=== PATIENT | female | born 1985 | race Caucasian/White ===

== ENCOUNTER 2017-07-29 06:54 | Day surgery (SDC) | payer MEDICAID, SELFPAY ==
[2017-07-29 07:18] VITALS: BP 152/88; PULSE 85; RESP 20; TEMP 36; O2SAT 100; BMI 66.5
[2017-07-29 07:34] LABS: Internal QC Validated? YES +Cl - CLEAR BKGD
[2017-07-29 07:35] LABS: Pregnancy, Urine Negative Negative
[2017-07-29 07:36] LABS: Bedside Glucose 156 mg/dL (70-110)
[2017-07-29 09:05] VITALS: BP 138/123; BP 152/88; PULSE 84; RESP 20; TEMP 36.6; O2SAT 95
--- NOTE | 2017-07-29 09:08 | PCM.OP.BLANK ---
Operative Report Date of Procedure: 07/29/17 Preoperative diagnosis: Right Carpal tunnel syndrome Postoperative diagnosis: Same Title of operation: Open Right carpal tunnel release Surgeon: Dr. Wai Kruse Anesthesia: Local w MAC Indications for surgery: Patient seen and evaluated in the office. Diagnosed with carpal tunnel syndrome. They have failed adequate nonoperative treatment. Due to persistent symptoms they wish to proceed with carpal tunnel release surgery appropriate informed consent was obtained and signed. Details of procedure: Patient was taken to the OR and transferred to the OR table. Appropriate timeouts were performed. Well-padded tourniquet was applied to the operative upper extremity proximally. MAC administered. Area was prepped with alcohol. Local anesthetic was administered using 9 cc of 2% lidocaine plain. Operative extremity was prepped padded and draped in usual orthopedic sterile fashion for the procedure. Limb was exsanguinated. Tourniquet applied to 250 mmHg. Three centimeter incision was made over the palm. Carefully taken through skin, subcutaneous tissue, down onto the transverse carpal ligament. Transverse carpal ligament was opened at the midportion with a knife. Elevator was carefully placed underneath the transverse carpal ligament in a distal direction. I dissected down onto that with a knife. Elevator was then placed in a proximal direction, again directly underneath the transverse carpal ligament. I dissected down on that with a knife. Scissors were used at the proximal extent placed under direct visualization. This fully released the proximal extent of the transverse carpal ligament. At this point my small finger was placed proximally and distally to assure complete release of the transverse carpal ligament over the median nerve. FPL tendon was noted. No significant abnormalities were noted at the region of the carpal canal. Tourniquet was let down. Bleeding controlled with the Bovie. Wound thoroughly irrigated. No undue bleeding noted. Skin edges were reapproximated with a 4-0 nylon. Sterile bandage was applied. Patient was awoken from the anesthetic. Transferred to the room bed. To recovery room in satisfactory condition. Patient will be discharged home. Ice and elevation recommended. Pain medication as needed. Follow-up in the office next week as scheduled. This note was generated with [employer] dictation software. It may contain incorrect words, spelling, and punctuation that were not noted in checking the note before signing.
[2017-07-29 09:15] VITALS: BP 136/89; BP 152/88; PULSE 79; RESP 18; O2SAT 92
[2017-07-29 09:30] VITALS: BP 148/90; BP 152/88; PULSE 82; RESP 18; O2SAT 92
[2017-07-29 09:46] VITALS: BP 152/88; BP 155/85; PULSE 94; RESP 16; TEMP 36.2; O2SAT 92
[2017-07-29 09:56] LABS: Bedside Glucose 135 mg/dL (70-110)
[2017-07-29 10:25] VITALS: BP 152/88
== END 2017-07-29 10:33 | disposition home or self-care (01) ==
LOC: SDC 06:54 → AC 06:56
PROVIDERS: Anesthesiology; Visit Provider Orthopaedic Surgery
PROC: (CPT 64721; principal; 2017-07-29 08:15)
DX: G56.01 Carpal tunnel syndrome, right upper limb (principal); I10 Essential (primary) hypertension; E11.9 Type 2 diabetes mellitus without complications; F32.9 Major depressive disorder, single episode, unspecified; F17.210 Nicotine dependence, cigarettes, uncomplicated; Z79.84 Long term (current) use of oral hypoglycemic drugs; Z79.899 Other long term (current) drug therapy
CPT/HCPCS: 64721; 81025; 82962; J7120; J2405

== ENCOUNTER 2017-09-02 15:30 | Outpatient (RCR) | payer MEDICAID, SELFPAY ==
--- NOTE | 2017-08-08 17:53 | HP.OTEVAL ---
Patient's Visit Information ROSALINA HADDAD is a 31 year old F, referred to Occupational Therapy by JA Freeman.BPOMPE, with a diagnosis of right CTS. Date of Evaluation: 08/08/17 Occupational Therapist: Dennise Meraz, OTR/Shane, CHT - Subjective Subjective: Pts states she had CTS on and off for a couple of years. 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 pt states her RIght CT 07-29-17. pt states she is feeling better most sensation has returned - pt is right hand dom. 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 with BADLS and IADLS By D/C Goal:: PT will demo a increase in right wrist ROM by 20 degrees to incrases her ind. with bathing, dressing and meal prep. D/C Goal:: PT will report pain is no greater than 2/10 with BADLS and IADLS by d/c Goal:: pt will demo the ability to manipulate fasteners at ind. level by d/c Goal:: pt will demo understanding of scar mtg and desensitization by end of 3rd session. - Rehabilitation General Assessment: S/P right CTR - Anticipated Interventions Anticipated Interventions: A/AAROM/PROM, Strengthening, Scar Care, Triggerpoint Release, Desensitization, Wound Care, Modalities, Fine Motor Coord/Junior - Visit Plan Frequency: 2-3x /Week Duration: 4 Weeks General Plan: OT 2-3x week luis 4 weeks will ed. pt on tendon glide ex and scar mtg. and progress pt with ROM and strength to return to work and BADls at IND. level TEXT: Thank you for the opportunity to evaluate your patient. For Medicare and Medicare HMO plans, please review the plan of care and approve it. It will need to be FAXED BACK to us at [phone] for Medicare purposes. Please let me know if there are questions or concerns regarding this plan of care. Physician Signature: Date:
--- NOTE | 2017-10-26 13:25 | HP.OT.NRP ---
HP - Discharge Summary - Patient Information ROSALINA HADDAD was seen in my office for initial evaluation on 08/08/17. The following Plan of Care was established for this patient: Initial Frequency: 2-3x /Week Initial Duration: 4 Weeks Plan: cont POC - Anticipated Interventions Anticipated Interventions: A/AAROM/PROM, Strengthening, Scar Care, Triggerpoint Release, Desensitization, Wound Care, Modalities, Fine Motor Coord/Junior This patient was last seen in our office 09/02/17. Pertinent comments regarding their Occupational therapy will appear below: Pt was seen for 9 visits following CTR- pt demo good progress and her last visit was 09-02-17. PT was to return for one more visit to ensure HEP- pt did not due so or has not scheduled any further apts and is D/C at this time. At this point I will be discontinuing this patient from occupational therapy. I would be happy to see this patient again in the future if found appropriate by the physician. Thank you! Dennise Meraz, OTR/L, CHT
== END 2017-09-02 19:00 | disposition home or self-care (01) ==
LOC: OT 15:30
PROVIDERS: Visit Provider Physician Assistant
DX: G56.01 Carpal tunnel syndrome, right upper limb (principal)
CPT/HCPCS: 97035; 97110; 97140; 97166

== ENCOUNTER 2017-12-22 20:48 | Emergency (ER) | payer MEDICAID, SELFPAY ==
[2017-12-22 20:50] VITALS: BP 175/96; PULSE 116; RESP 20; TEMP 36.7; O2SAT 96; BMI 65.2
--- NOTE | 2017-12-22 21:51 | ED.VISSUMM ---
- ER Visit Summary Date of Service: 12/22/17 Chief Complaint: Atraumatic left lateral ankle pain History of Present Illness: The patient is a 32 F history of noncemented diabetes and hypertension. Patient states that she recently started work again. She has been working at the [employer] the last 3 days. States that they walk and stand a lot. She is developed pain and mild swelling her left lateral ankle. Denies any trauma. No prior history no prior ankle surgery. Denies knee, hip or calf pain. Denies any fever or redness. Physical Examination: Well-appearing young female. Vital signs are stable and afebrile. She does not look septic or toxic. Currently she is in no acute distress. H EENT exam unremarkable. Neck nontender. Lungs clear to auscultation bilaterally. Heart regular rhythm no murmur. Abdomen soft nontender normal bowel sounds no peritoneal signs. She is mildly overweight. She is moving all 4 extremities. They are neurovascularly intact. She has a strong DP pulse left ankle. Dorsi plantar flexion intact. Achilles intact. Left foot neurovascular intact nontender. She has minimal volume tenderness to left lateral ankle. There is no redness or warmth. Calf is nontender she has normal range of motion to the left lower extremity and normal touch sensation. Test Results: None Emergency Department Course and Treatment: Given the patient's had no trauma and her history would be consistent with a lot of walking standing I think is just inflammation of the ankle. She deferred any x-rays at this time and needs no other testing. She will be given p.o. Motrin here. Treatment Plan: Ice and elevate. Motrin for pain and inflammation. Off work tomorrow. Disposition: Discharge Impression: Left lower ankle pain and swelling secondary to overuse This note was generated with [employer] dictation software. It may contain incorrect words, spelling, and punctuation that were not noted in review of the chart prior to signing ED Disposition - Plan for ED Patient: Chief Complaint: Lower Extremity Injury Referrals: Jm Lewis,Out of [Primary Care Provider] -
--- NOTE | 2017-12-22 21:54 | ED.DCSUM_ITS ---
- ER Visit Summary Date of Service: 12/22/17 Chief Complaint: Atraumatic left lateral ankle pain History of Present Illness: The patient is a 32 F history of noncemented diabetes and hypertension. Patient states that she recently started work again. She has been working at the [employer] the last 3 days. States that they walk and stand a lot. She is developed pain and mild swelling her left lateral ankle. Denies any trauma. No prior history no prior ankle surgery. Denies knee, hip or calf pain. Denies any fever or redness. Physical Examination: Well-appearing young female. Vital signs are stable and afebrile. She does not look septic or toxic. Currently she is in no acute distress. H EENT exam unremarkable. Neck nontender. Lungs clear to auscultation bilaterally. Heart regular rhythm no murmur. Abdomen soft nontender normal bowel sounds no peritoneal signs. She is mildly overweight. She is moving all 4 extremities. They are neurovascularly intact. She has a strong DP pulse left ankle. Dorsi plantar flexion intact. Achilles intact. Left foot neurovascular intact nontender. She has minimal volume tenderness to left lateral ankle. There is no redness or warmth. Calf is nontender she has normal range of motion to the left lower extremity and normal touch sensation. Test Results: None Emergency Department Course and Treatment: Given the patient's had no trauma and her history would be consistent with a lot of walking standing I think is just inflammation of the ankle. She deferred any x-rays at this time and needs no other testing. She will be given p.o. Motrin here. Treatment Plan: Ice and elevate. Motrin for pain and inflammation. Off work tomorrow. Disposition: Discharge Impression: Left lower ankle pain and swelling secondary to overuse This note was generated with [employer] dictation software. It may contain incorrect words, spelling, and punctuation that were not noted in review of the chart prior to signing ED Disposition - Plan for ED Patient: Chief Complaint: Lower Extremity Injury Referrals: Jm Lewis,Out of [Primary Care Provider] -
--- NOTE | 2017-12-22 21:55 | DCINST.ED_ITS ---
ED Disposition - Plan for ED Patient: Disposition: Home or Assisted Living Chief Complaint: Lower Extremity Injury Referrals: [facility] [address] Doctor,Out of [Primary Care Provider] - 1 Week if not improving Additional Instructions: Off work tomorrow. Motrin for pain and inflammation. Ice and elevate the left ankle. I suspect this is just from a lot of walking and standing that you have not been used to. This should progressively get better with time. If not follow- up your primary care physician and you may need x-rays at that time.
[2017-12-22 22:05] VITALS: PULSE 78; RESP 20
[2017-12-22] MEDS: Ibuprofen 600 MG Tablet PO (22:05)
== END 2017-12-22 22:06 | disposition home or self-care (01) ==
LOC: ED 21:59
PROVIDERS: Emergency Provider Emergency Medicine; Family Provider Nurse Practitioner Family; PCP Nurse Practitioner Family
DX: M70.872 Other soft tissue disorders related to use, overuse and pressure, left ankle and foot (principal); Y93.89 Activity, other specified; E11.9 Type 2 diabetes mellitus without complications; I10 Essential (primary) hypertension; Z79.84 Long term (current) use of oral hypoglycemic drugs; Z79.899 Other long term (current) drug therapy; Z72.0 Tobacco use
CPT/HCPCS: 99283

== ENCOUNTER → 2018-03-09 12:56 | Outpatient (CLI) | payer MEDICAID, SELFPAY ==
--- NOTE | 2018-03-09 13:12 | BI_ITS ---
MAMMOGRAPHY - BILATERAL SCREENING 3-D GLENN SYNTHESIS REASON FOR EXAM: Female, 32 years old. Bilateral Screening 3-D tomosynthesis. PERTINENT HISTORY: Maternal grandmother age approximate 50. TECHNIQUE: 2-D mammograms and 3-D Glenn synthesis of the breast (s) were performed. CAD was performed. COMPARISON: 02/16/2016. FINDINGS: The breast composition is composed of scattered fibroglandular density. The breast composition is extremely dense, which lowers the sensitivity of mammography. Scattered benign appearing calcifications are seen. No dense spiculated masses or suspicious microcalcification cluster are identified. No architectural distortion or asymmetric density is identified. There is no skin thickening or nipple retraction identified. There has been no significant change identified since the prior study. BI/SCREENING MAMM (CAD), BILAT IMPRESSION: No mammographic sign of malignancy. Routine yearly mammograms recommended. ASSESSMENT CATEGORY: BIRADS Category 2: Benign. A letter regarding these results will be sent to the patient by the facility within 30 days. FOLLOW UP RECOMMENDATION: Yearly follow up mammogram recommended. (A) Negative mammographic results should not deter biopsy as a palpable lesion if present should be followed based on clinical grounds and biopsy performed if clinically persistent for 3 months or increasing size. Approximately 10% of breast cancers are not detected by mammography. A normal mammogram should not delay biopsy of a clinically suspicious abnormality. Electronically Signed: Reji Hernandez, at 16:36 EDT Tel , Service support ,
== END ==
PROVIDERS: Family Provider Nurse Practitioner Family; PCP Nurse Practitioner Family
DX: Z12.31 Encounter for screening mammogram for malignant neoplasm of breast (principal)
CPT/HCPCS: 77063; 77067

== ENCOUNTER 2018-04-19 11:17 | Emergency (ER) | payer MEDICAID, SELFPAY ==
[2018-04-19 11:19] VITALS: BP 162/104; PULSE 113; RESP 18; TEMP 36.5; O2SAT 93; BMI 68.3
--- NOTE | 2018-04-19 12:09 | EKG12_ITS ---
Test Reason : CP Blood Pressure : / mmHG Vent. Rate : 091 BPM Atrial Rate : 091 BPM P-R Int : 170 ms QRS Dur : 080 ms QT Int : 352 ms P-R-T Axes : 021 030 011 degrees QTc Int : 432 ms Normal sinus rhythm Normal ECG Confirmed by RADHA NICOLE, YARY ([id number]), science editor ANTONIO HADDAD ([id number]) on 04/21/2018 3:10:27 PM Referred By: ALMITA Confirmed By:YARY GARCIA MD
--- NOTE | 2018-04-19 12:10 | ED.VISSUMM ---
- ER Visit Summary Date of Service: 04/19/18 Chief Complaint: Chest pain History of Present Illness: The patient is a 32 F who presents for chest pain. Patient has been having intermittent substernal chest pain for 1 month. Episodes last 5-10 minutes, described as dull and nagging, and occur several times daily. It is worse with stress. Patient is noticing radiation into the left arm today. She is currently rating it 6 out of 10. She has mild associated nausea. She has a chronic cough due to smoking. No fever, shortness of breath, abdominal pain, vomiting, back pain or other complaints. She has history of hypertension, diabetes, hypercholesterolemia, mother of heart disease with onset at age younger than 55, patient is a smoker. Physical Examination: Vital signs: afebrile, hemodynamically stable, no hypoxia on room air General: well nourished, well developed, in no distress, BMI of 68 Skin: warm, dry, no rash, no pallor HEENT: normocephalic and atraumatic; PERRL, EOMI, moist mucous membranes Cardiovascular: regular rate and rhythm without murmurs, no peripheral edema, 2+ pulses all distal extremities Respiratory: No increased work of breathing, lungs are clear to auscultation bilaterally, no rales, rhonchi or wheezing Abdominal: Abdomen is soft, nontender with normoactive bowel sounds, no guarding or rebound, no masses MSK: Moves all extremities, no deformities, normal strength Neuro: Awake and alert, oriented ?4. No facial droop, sensation and motor function intact and symmetric Test Results: Abnormal Lab Results 04/19/18 04/19/18 04/19/18 12:36 12:36 12:36 WBC 10.6 RBC 4.58 Hgb 12.4 Hct 37.9 MCV 82.8 MCH 27.1 MCHC 32.7 RDW 13.8 RDW Differential 41.0 Plt Count 324 MPV 10.1 Immature Gran % (Auto) 0.300 Neut % (Auto) 64.5 Lymph % (Auto) 28.5 [facility] % (Auto) 5.3 Eos % (Auto) 1.1 Baso % (Auto) 0.3 Absolute Neuts (auto) 6.8 Absolute Lymphs (auto) 3.02 Total Counted Not Reportable PT 12.9 INR 1.0 APTT 32.6 Sodium 136 Potassium 3.8 Chloride 100 Carbon Dioxide 29.0 Anion Gap 7 BUN 16 Creatinine 0.80 Estim Creat Clear Calc 76.89 Est GFR (MDRD) Af Amer 107 Est GFR (MDRD) Non-Af 88 BUN/Creatinine Ratio 19.9 Glucose 114 H Calcium 8.8 Troponin I < 0.015 TSH 2.61 04/19/18 15:32 WBC RBC Hgb Hct MCV MCH MCHC RDW RDW Differential Plt Count MPV Immature Gran % (Auto) Neut % (Auto) Lymph % (Auto) [facility] % (Auto) Eos % (Auto) Baso % (Auto) Absolute Neuts (auto) Absolute Lymphs (auto) Total Counted PT INR APTT Sodium Potassium Chloride Carbon Dioxide Anion Gap BUN Creatinine Estim Creat Clear Calc Est GFR (MDRD) Af Amer Est GFR (MDRD) Non-Af BUN/Creatinine Ratio Glucose Calcium Troponin I < 0.015 TSH Clinical Impression(s) from Imaging Studies Chest X-Ray 04/19/18 12:55 IMPRESSION: Normal x-ray examination of the chest. Electronically Signed: Reggie Coulter MD at 13:10 EST Tel [phone], Service support , Medications Given Discontinued Medications Aspirin (Aspirin, Baby) 324 mg PO X1 STA Stop: 04/19/18 12:09 Last Admin: 04/19/18 12:31 Dose: 324 mg Nitroglycerin (Nitrostat) 0.4 mg SUBLINGUAL Q5M CRISSY Stop: 04/19/18 12:26 Last Admin: 04/19/18 12:42 Dose: Not Given Admin: 04/19/18 12:36 Dose: 0.4 mg Admin: 04/19/18 12:31 Dose: 0.4 mg Emergency Department Course and Treatment: Patient was given aspirin and nitro for her chest pain. EKG showed a sinus rhythm rate of 91 with no ischemic changes. Initial troponin negative. Labs otherwise unremarkable. TSH within normal limits. Chest x-ray showed no acute process. Patient is young but does have risk factors for coronary artery disease. Her BERNA is I and heart score is 3. Because she is low risk, repeat troponin and EKG were performed at 3 hours. Repeat EKG showed no changes and repeat troponin was negative. Upon reevaluation, patient had no further episodes of chest pain. Patient was tachycardic upon initial entrance into ED, likely secondary to walking into the ED, but had resolution of tachycardia shortly after rest. With no tachycardia, no hypoxia, no dyspnea or tachypnea, and no risk factors for PE, patient is PERC negative, low risk Wells, and thus no d-dimer performed. She has an appointment with her primary care doctor scheduled already and will keep this appointment. We discussed her following up with the primary care doctor for outpatient stress test. Patient stated she would do this and was discharged home with symptoms resolved. Treatment Plan: [] Disposition: [] Impression: Episodic chest pain This note was generated with [facility] dictation software. It may contain incorrect words, spelling, and punctuation that were not noted in review of the chart prior to signing ED Disposition - Plan for ED Patient: Disposition: Home or Assisted Living Chief Complaint: Chest Pain Instructions: ED Chest Pain Atypical Unkn Cause Referrals: Blossom Rashid NP-C [Primary Care Provider] - 3-5 Days if not improving Additional Instructions: Please follow-up with your primary care provider for another evaluation and to discuss scheduling a stress test. If you have any worsening of your condition or any new concerning symptoms, please return immediately to the emergency department for another evaluation.
[2018-04-19 12:31] VITALS: BP 144/91; PULSE 96
[2018-04-19] MEDS: Aspirin 81 MG TAB.CHEW 324 MG PO (12:31)
[2018-04-19 12:36] VITALS: BP 124/74; PULSE 88
[2018-04-19 12:49] LABS: Absolute Lymphocyte Count 3.02 X10^3/ul (0.83-4.51); Absolute Neutrophil Count 6.8 X10^3/uL (2.0-7.7); Basophil# 0.03 X10^3/uL; Basophil% 0.3 % (0-1); Eosinophil# 0.12 X10^3/uL; Eosinophils% 1.1 % (0-5); Hematocrit 37.9 % (37-47); Hemoglobin 12.4 g/dl (12.0-15.0); Lymphocyte # 3.02 X10^3/ul (4.0); Lymphocyte % 28.5 % (19-41); Mean Corp Hgb Conc 32.7 g/gl (32-36); Mean Corpuscular Hgb 27.1 pg (27.0-32.0); Mean Corpuscular Volume 82.8 fL (81-99); Mean Platelet Vol. 10.1 fl (6.2-12.0); Monocyte# 0.56 X10^3/uL; Monocyte% 5.3 % (0-10); Neutrophil # 6.83 X10^3/uL (2.7-7.7); Neutrophil % 64.5 % (47-70); Platelet Count 324 K/mm3 (150-450); RBC Distribution Width CV 13.8 % (11.6-14.6); Red Blood Count 4.58 M/mm3 (4.2-5.4); White Blood Count 10.6 K/mm3 (4.4-11.0)
[2018-04-19 12:51] LABS: POSITIVE COUNT NO; POSITIVE DIFFERENTIAL NO; POSITIVE MORPHOLOGY NO
--- NOTE | 2018-04-19 12:55 | RAD_ITS ---
STUDY: X-RAY CHEST REASON FOR EXAM: Female, 32 years old. Chest pain. TECHNIQUE: AP and lateral views of the chest. COMPARISON: None. FINDINGS: EKG electrodes are seen. The lungs are clear and expanded. There is no demonstrated pleural abnormality. Normal size heart. Normal mediastinum and marco. Normal visualized pulmonary arteries. Normal visualized aortic arch and descending thoracic aorta. Normal visualized thoracic spine. Normal visualized ribs, clavicles, and shoulders. There is no demonstrated abnormality of the visualized soft tissue structures of the upper abdomen. RAD/Chest PA and Lateral IMPRESSION: Normal x-ray examination of the chest. Electronically Signed: Reggie Coulter MD at 13:10 EST Tel [phone], Service support ,
[2018-04-19 12:58] LABS: Prothrombin Time (Protime)PT. 12.9 SECONDS (11.7-14.9)
[2018-04-19 12:59] LABS: Partial Thromboplast Time 32.6 Seconds (24.1-36.2)
[2018-04-19 13:05] LABS: Anion Gap 7 (5-15); BUN 16 mg/dL (7-18); BUN/Creat Ratio 19.9 RATIO (10-20); Calcium,Total 8.8 mg/dL (8.5-10.1); Chloride 100 mmol/L (98-107); EST Glomerular Filtration Rate 88 mL/min (>60); Est Glom Filt Rate - Afr Amer 107 mL/min (>60); Estimated Creatinine Clearance 76.89 ml/min; Glucose 114 mg/dL (74-106); Potassium 3.8 mmol/L (3.5-5.1); Sodium Level 136 mmol/L (136-145); Thyroid Stim Hormone (TSH) 2.61 uIU/mL (0.358-3.74)
[2018-04-19 13:40] VITALS: BP 128/79; PULSE 89; RESP 24; O2SAT 96
--- NOTE | 2018-04-19 14:50 | EKG12_ITS ---
Test Reason : REPEAT Blood Pressure : / mmHG Vent. Rate : 096 BPM Atrial Rate : 096 BPM P-R Int : 168 ms QRS Dur : 086 ms QT Int : 366 ms P-R-T Axes : 021 027 011 degrees QTc Int : 462 ms Normal sinus rhythm Normal ECG Confirmed by RADHA NICOLE, YARY ([id number]), editorial cartoonist ANTONIO HADDAD ([id number]) on 04/21/2018 3:10:41 PM Referred By: ALMITA Confirmed By:YARY GARCIA MD
[2018-04-19 15:15] VITALS: BP 124/61; PULSE 86; O2SAT 98
--- NOTE | 2018-04-19 16:38 | ED.DEP ---
ED Disposition - Plan for ED Patient: Disposition: Home or Assisted Living Chief Complaint: Chest Pain Instructions: ED Chest Pain Atypical Unkn Cause Referrals: Blossom Rashid NP-C [Primary Care Provider] - 3-5 Days if not improving Additional Instructions: Please follow-up with your primary care provider for another evaluation and to discuss scheduling a stress test. If you have any worsening of your condition or any new concerning symptoms, please return immediately to the emergency department for another evaluation.
[2018-04-19 16:51] VITALS: BP 124/72; PULSE 20; RESP 20
== END 2018-04-19 16:54 | disposition home or self-care (01) ==
PROVIDERS: Emergency Provider Emergency Medicine; Family Provider Nurse Practitioner Family; PCP Nurse Practitioner Family
DX: R07.89 Other chest pain (principal); I10 Essential (primary) hypertension; E11.9 Type 2 diabetes mellitus without complications; E78.00 Pure hypercholesterolemia, unspecified; F17.200 Nicotine dependence, unspecified, uncomplicated; E66.9 Obesity, unspecified; Z68.44 Body mass index [BMI] 60.0-69.9, adult; Z79.84 Long term (current) use of oral hypoglycemic drugs; Z79.899 Other long term (current) drug therapy; Z82.49 Family history of ischemic heart disease and other diseases of the circulatory system
CPT/HCPCS: 71046; 80048; 84443; 84484; 85025; 85610; 85730; 93005; 99285; A4216

== ENCOUNTER 2018-09-25 12:38 | Emergency (ER) | payer MEDICAID, SELFPAY ==
[2018-05-16 09:26] VITALS: BMI 56.9
[2018-09-25 12:39] VITALS: BP 139/102; PULSE 95; RESP 17; TEMP 36.2; O2SAT 99; BMI 69.9
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
[2018-09-25 14:37] VITALS: BP 143/100; PULSE 92; RESP 16; O2SAT 98
== END 2018-09-25 14:50 | disposition home or self-care (01) ==
PROVIDERS: Emergency Provider Emergency Medicine; Family Provider Nurse Practitioner Family; PCP Nurse Practitioner Family
DX: S16.1XXA Strain of muscle, fascia and tendon at neck level, initial encounter (principal); V89.2XXA Person injured in unspecified motor-vehicle accident, traffic, initial encounter; Y93.89 Activity, other specified; Y92.9 Unspecified place or not applicable; I10 Essential (primary) hypertension; E78.5 Hyperlipidemia, unspecified; E11.9 Type 2 diabetes mellitus without complications; E66.01 Morbid (severe) obesity due to excess calories; Z68.44 Body mass index [BMI] 60.0-69.9, adult; F17.200 Nicotine dependence, unspecified, uncomplicated; Z79.84 Long term (current) use of oral hypoglycemic drugs; Z79.899 Other long term (current) drug therapy
CPT/HCPCS: 72050; 72072; 99282

== ENCOUNTER → 2020-02-27 08:19 | Outpatient (CLI) | payer OTHER, SELFPAY ==
--- NOTE | 2020-02-27 08:21 | BI_ITS ---
MAMMOGRAPHY - BILATERAL SCREENING REASON FOR EXAM: Female, 34 years old. Routine annual screening examination. PERTINENT HISTORY: Grandmother with breast cancer. TECHNIQUE: Digital bilateral breast glenn (3D mammographic acquisition) in the CC and MLO projections. 2-D mediolateral oblique (MLO) and craniocaudad (CC) views of both breasts were obtained. CAD: Full Field Digital Mammography with Computer Added Detection was performed. COMPARISON: Comparison is made with prior study dated 03/09/2018 and 02/16/2016. FINDINGS: Breast Composition: There are scattered areas of fibroglandular density. There are no dominant masses or suspicious calcifications. Stable benign-appearing bilateral axillary lymph nodes. No other significant abnormalities are identified. There has been no significant change since the prior study. BI/SCREEN MAMM (CAD) W/GLENN BILAT IMPRESSION: Stable bilateral screening mammogram. Yearly follow-up mammogram recommended. (A) ASSESSMENT CATEGORY: BIRADS Category 2: Benign. A letter regarding these results will be sent to the patient by the facility within 30 days. Approximately 10% of breast cancers are not detected by mammography. A normal mammogram should not delay biopsy of a clinically suspicious abnormality. [id number] Electronically Signed: Reggie Coulter, at 9:49 EDT , Service support ,
== END ==
PROVIDERS: PCP Nurse Practitioner Family
DX: Z12.31 Encounter for screening mammogram for malignant neoplasm of breast (principal)
CPT/HCPCS: 77063; 77067

== ENCOUNTER → 2020-06-24 10:04 | Outpatient (CLI) | payer OTHER, SELFPAY ==
[2020-06-24 11:29] LABS: Hemoglobin A1c 7.4 % (3.8-5.6)
[2020-06-24 11:38] LABS: Microalbumin,Random Urine 28.7 mg/L (NO RANGE EST.); Microalbumin:Creatinine Ratio 9.1 mg/g CRE (<30 mg/g CRE)
[2020-06-24 11:53] LABS: ALB/GLOB Ratio 0.6 RATIO (0.9-2.4); AST(SGOT) 9 U/L (15-37); Alanine Aminotransfer ALT/SGPT 18 U/L (13-56); Alkaline Phosphatase 88 U/L (45-117); Anion Gap 7 (5-15); BUN 15 mg/dL (7-18); BUN/Creat Ratio 20.2 RATIO (10-20); Calcium,Total 8.9 mg/dL (8.5-10.1); Chloride 99 mmol/L (98-107); Cholesterol 243 mg/dL (200); Creatinine, Serum 0.74 mg/dL (0.55-1.02); EST Glomerular Filtration Rate 96 mL/min (>60); Est Glom Filt Rate - Afr Amer 116 mL/min (>60); Globulin 4.9 g/dL (2.2-4.2); Glucose 145 mg/dL (74-106); High Density Lipoprotein 58 mg/dL; Potassium 3.5 mmol/L (3.5-5.1); Protein, Total 7.9 g/dL (6.4-8.2); Sodium Level 136 mmol/L (136-145); Triglycerides 257 mg/dL; Very Low Density Lipoprotein 51 mg/dL (5-40)
== END ==
LOC: LAB 10:07
DX: E11.9 Type 2 diabetes mellitus without complications (principal); E78.2 Mixed hyperlipidemia
CPT/HCPCS: 36415; 80053; 80061; 82043; 82570; 83036

== ENCOUNTER 2022-05-04 08:30 | Emergency (ER) | payer OTHER, SELFPAY ==
[2022-05-04 08:30] VITALS: BP 146/100; PULSE 90; RESP 20; TEMP 36.6; O2SAT 100; BMI 62.3
--- NOTE | 2022-05-04 08:32 | ED.RN ---
PT AMBULATED IN DEPARTMENT WITHOUT DIFFICULTY
--- NOTE | 2022-05-04 09:28 | EDS_ITS ---
HPI History of Present Illness Chief Complaint: Back Informant: patient Narrative Narrative: Patient states she started to get pain in her left back yesterday afternoon. It was a little sore at first. It worked when she got in a hot shower. If she would stretch it that would help. But it is slowly gotten worse. It sore when she twists or moves. It is not sore with breathing. There is no shortness of breath coughing. She denies any urinary symptoms at all. No frequency urgency change in color. No blood. No history of kidney stones. She also has no radiation from the area. It is all in the left paraspinal lumbar area. It is better she is still and worse if she moves. No bowel or bladder dysfunction. No radicular symptoms. No recent illness. No recent fevers chills cough infection cellulitis or dental infections. No history of prior back surgery but she has had intermittent back pain. Blood sugars have been running about 160 she has had [facility] Medical History Chest pain Diabetes mellitus, type II Hyperlipidemia Hypertension Morbid obesity with BMI of 60.0-69.9, adult Tobacco use Home Medications hydrochlorothiazide 25 mg tablet 25 mg PO DAILY BP 07/22/17 [History Last Taken Unknown] venlafaxine 225 mg tablet,extended release 24 hr 200 mg PO DAILY DEPRESSION 07/22/17 [History Last Taken Unknown] atorvastatin 40 mg tablet 40 mg PO DAILY 05/04/22 [History Last Taken Unknown] cyclobenzaprine 10 mg tablet 10 mg PO BID PRN muscle spasm #10 tabs 05/04/22 [Rx Last Taken Unknown] hydrocodone-acetaminophen 5-325mg 5mg-325mg 1 tab PO Q6H PRN pain 3 days #10 tabs 05/04/22 [Rx Last Taken Unknown] lamotrigine 200 mg tablet 200 mg PO DAILY 05/04/22 [History Last Taken Unknown] metformin 1,000 mg tablet 1,000 mg PO BID 05/04/22 [History Last Taken Unknown] naproxen 500 mg tablet 500 mg PO BID #14 tabs 05/04/22 [Rx Last Taken Unknown] Allergy/AdvReac Type Severity Reaction Status Date / Time aripiprazole [From Abilify] Allergy Angioedema Verified 05/04/22 08:32 lisinopril Allergy Angioedema Verified 05/04/22 08:32 Penicillins [PCN] Allergy Rash Verified 05/04/22 08:32 Family History Father Hypertension Mother , Age 58 from stage 4 kidney failure Kidney disease Stage 4 chronic kidney disease Brother , Age 38 from sepsis Sepsis Surgical History History of appendectomy (~2000) History of carpal tunnel release (07/29/17) History of ovarian cystectomy (~2010) Social History Smoking Status: Former smoker ROS ROS ED Constitutional Constitutional ED: Denies chills, fever(s), subjective or sweats ENT ENT ED: Denies rhinorrhea or sore throat Cardiovascular Cardiovascular: Denies chest pain or palpitations Respiratory/Chest Respiratory/Chest: Denies dyspnea or dyspnea on exertion Gastrointestinal Gastrointestinal: Reports nausea and other Details: Patient is not nauseated now but states that she has gotten nauseated a couple times when the pain is bad. ; Denies abdominal pain, diarrhea or vomiting Genitourinary Genitourinary ED: Denies dysuria, hematuria or urinary frequency Musculoskeletal Musculoskeletal: Reports back pain; Denies neck pain Integumentary Denies rash Neurologic Neurologic: Denies headache(s), paresthesias or weakness Endocrine Endocrinology: Denies polydipsia or polyuria Hematologic/Lymphatic Hematologic/Lymphatic: Denies lymphadenopathy Allergic/Immunologic Allergic/Immunologic ED: Denies urticaria EXAM Physical Exam Const Vital Signs: 05/04/22 08:30 Temperature 97.9 F Temperature Source Temporal Pulse Rate 90 Respiratory Rate 20 H Blood Pressure 146/100 H Blood Pressure Mean 115 Pulse Ox 100 Oxygen Delivery Method Room Air MDM MDM MDM Narrative Medical decision making narrative: Patient's urine showed positive nitrites. But is a very small amount of leukocyte Estrace. There are no white cells. Only 1+ bacteria. Patient was again asked. She has not been having any change of symptoms with urination, frequency urgency change in color or odor. We will send a urine culture but I will not treat with antibiotics at this time. Patient is feeling much better with meds. Her exam is much more consistent with musculoskeletal. It is reproducible with motion and palpation. She has never had a kidney stone. She has no blood in the urine. We discussed this. We will treat her for pain. If she gets worsening pain, urinary symptoms, fever or other concerns she may need to return and we will pursue a wider work-up at that time. Also, her online prescribing report is completely clean. I think this patient genuinely has discomfort and is not seeking pain meds. Lab Data Attestation: I reviewed the patient's lab results. Labs: Laboratory Results - last 24 hr 05/04/22 09:47 Urine Color Yellow Urine Clarity Sl. Cloudy Urine pH 6.5 Ur Specific [place] 1.020 Urine Protein 15 H Urine Glucose (UA) 250 H Urine Ketones 5 H Urine Occult Blood Negative Urine Nitrite Positive H Urine Bilirubin Negative Urine Urobilinogen Normal Ur Leukocyte Esterase 25 H Urine RBC 0 SEEN Urine WBC 0-5 SEEN Ur Squamous Epith Cells 0-5 SEEN Urine Bacteria 1+ Urine Mucus 0 SEEN Urine Test Negative Discharge Plan Triage Chief Complaint: Back ED Provider: Kam Peoples Dx/Rx/DC Orders Clinical Impression: Pain in left paraspinal region Instructions: ED Back Sprain/Strain Prescriptions: New cyclobenzaprine 10 mg tablet 10 mg PO BID PRN (Reason: muscle spasm) Qty: 10 0RF hydrocodone-acetaminophen 5-325 mg tablet 1 tab PO Q6H PRN (Reason: pain) 3 Days Qty: 10 0RF naproxen 500 mg tablet 500 mg PO BID Qty: 14 0RF No Action hydrochlorothiazide 25 MG tablet 25 mg PO DAILY venlafaxine 225 MG tablet extended release 24hr 200 mg PO DAILY atorvastatin 40 mg tablet 40 mg PO DAILY lamotrigine 200 mg tablet 200 mg PO DAILY metformin 1,000 mg tablet 1,000 mg PO BID Label Comments: take 1 tablet by mouth twice a day Primary Care Provider: JOHN PAUL AGUIRRE Referrals: JOHN PAUL AGUIRRE [Other] Disposition Disposition: Home, Self Care
[2022-05-04] MEDS: oxyCODONE 5 MG Tablet PO (09:29)
[2022-05-04 09:53] LABS: Mucous, Urine 0 SEEN /hpf (<or=2+); Red Blood Cells-Urine 0 SEEN /hpf (0-5)
[2022-05-04 10:01] LABS: Color, Urine Yellow (Yellow); Glucose, Dipstick 250 mg/dl (Normal); Ketone-Dipstick 5 mg/dl (Negative); Leukocyte Esterase-Dipstick 25 /ul (Negative); Nitrite-Dipstick Positive (Negative); Occult Blood-Urine Negative /ul (Negative); Protein-Dipstick 15 mg/dl (Negative); Urine Bilirubin Dipstick Negative (Negative); Urine Clarity Sl. Cloudy (Clear); Urine Urobilinogen Normal (Normal); Urine pH 6.5 (5.0 - 8.0)
[2022-05-04 10:07] LABS: Bacteria 1+ /hpf (None Seen); Internal QC Validated? YES +Cl - CLEAR BKGD; Pregnancy, Urine Negative Negative; Squamous Epithelial Cells - UA 0-5 SEEN /hpf (5-10); White Blood Cells 0-5 SEEN /hpf (0-5)
== END 2022-05-04 11:17 | disposition home or self-care (01) ==
PROVIDERS: Emergency Provider Emergency Medicine; Visit Provider Emergency Medicine
DX: M54.9 Dorsalgia, unspecified (principal); E11.9 Type 2 diabetes mellitus without complications; E78.5 Hyperlipidemia, unspecified; I10 Essential (primary) hypertension; Z87.891 Personal history of nicotine dependence
CPT/HCPCS: 81001; 81025; 87086; 87088; 99282

== ENCOUNTER → 2024-08-09 | Outpatient (CLI) | payer OTHER, SELFPAY ==
[2024-08-09 13:22] LABS: ALB/GLOB Ratio 1.1 RATIO (0.9-2.4); AST(SGOT) 18 U/L (<=31); Alanine Aminotransfer ALT/SGPT 19 U/L (<=34); Albumin, Serum 3.6 g/dL (3.5-5.0); Alkaline Phosphatase 72 U/L (35-104); Anion Gap 12 (5-15); BUN 13 mg/dL (4-19); BUN/Creat Ratio 19.9 RATIO (10-20); Calcium,Total 9.2 mg/dL (7.6-11.0); Carbon Dioxide 21.3 mmol/L (21.0-32.0); Chloride 104 mmol/L (98-108); Creatinine, Serum 0.66 mg/dL (0.70-1.20); EST Glomerular Filtration Rate 116 (>60); Globulin 3.3 g/dL (2.2-4.2); Glucose 82 mg/dL (70-99); Potassium 4.3 mmol/L (3.3-5.1); Sodium Level 137 mmol/L (133-145); Total Bilirubin 0.21 mg/dL (0.00-1.30); Vitamin B12 349 pg/mL (180-914); Vitamin D,25 Hydroxy 21.1 ng/mL (30-100)
[2024-08-09 13:45] LABS: Cholesterol 232 mg/dL (<=200); High Density Lipoprotein 74 mg/dL; Low Density Lipoprotein Calc. 125 mg/dL; Triglycerides 168 mg/dL; Very Low Density Lipoprotein 34 mg/dL (5-40); cholesterol:hdl ratio screen 3.15
== END | disposition home or self-care (01) ==
DX: E11.9 Type 2 diabetes mellitus without complications (principal); E78.2 Mixed hyperlipidemia; E55.9 Vitamin D deficiency, unspecified
CPT/HCPCS: 36415; 80053; 80061; 82043; 82306; 82607; 84443

== ENCOUNTER → 2024-08-14 | Outpatient (CLI) | payer OTHER, SELFPAY ==
[2024-08-14 16:58] LABS: Absolute Lymphocyte Count 3.25 X10^3/uL (0.83-4.51); Absolute Neutrophil Count 5.5 X10^3/uL (2.0-7.7); Basophil# 0.05 X10^3/uL; Basophil% 0.5 % (0-1); Eosinophil# 0.16 X10^3/uL; Eosinophils% 1.7 % (0-5); Hematocrit 37.7 % (37-47); Hemoglobin 12.2 g/dL (12.0-15.0); Lymphocyte # 3.25 X10^3/ul (0.83-4.51); Lymphocyte % 34.1 % (19-41); Mean Corp Hgb Conc 32.4 g/dL (32-36); Mean Corpuscular Hgb 26.9 pg (27.0-32.0); Monocyte# 0.55 X10^3/uL; Monocyte% 5.8 % (0-10); NRBC Flagged by Analyzer 0 % (0-5); Neutrophil # 5.51 X10^3/uL (2.7-7.7); Neutrophil % 57.7 % (47-70); Platelet Count 322 K/mm3 (150-450); RBC Distribution Width SD 42.3 fl (35.1-43.9); Red Blood Count 4.54 M/mm3 (4.2-5.4); White Blood Count 9.5 K/mm3 (4.4-11.0)
== END | disposition home or self-care (01) ==
LOC: VSLAB 15:26
DX: E11.9 Type 2 diabetes mellitus without complications (principal)
CPT/HCPCS: 85025

== ENCOUNTER → 2024-10-31 | Outpatient (CLI) | payer OTHER, SELFPAY ==
[2024-10-31 13:35] LABS: Hemoglobin A1c 5.6 % (<=5.6)
[2024-10-31 13:51] LABS: ALB/GLOB Ratio 1.1 RATIO (0.9-2.4); AST(SGOT) 15 U/L (<=31); Alanine Aminotransfer ALT/SGPT 16 U/L (<=34); Albumin, Serum 3.9 g/dL (3.5-5.0); Alkaline Phosphatase 67 U/L (35-104); Anion Gap 11 (5-15); BUN 13 mg/dL (4-19); BUN/Creat Ratio 19.1 RATIO (10-20); Calcium,Total 9.2 mg/dL (7.6-11.0); Carbon Dioxide 25.2 mmol/L (21.0-32.0); Chloride 102 mmol/L (98-108); Cholesterol 181 mg/dL (<=200); Creatinine, Serum 0.66 mg/dL (0.70-1.20); EST Glomerular Filtration Rate 116 (>60); Globulin 3.6 g/dL (2.2-4.2); Glucose 88 mg/dL (70-99); High Density Lipoprotein 56 mg/dL; Low Density Lipoprotein Calc. 108 mg/dL; Potassium 3.6 mmol/L (3.3-5.1); Protein, Total 7.5 g/dL (5.9-8.4); Sodium Level 139 mmol/L (133-145); Total Bilirubin 0.21 mg/dL (0.00-1.30); Triglycerides 85 mg/dL; Very Low Density Lipoprotein 17 mg/dL (5-40); Vitamin B12 380 pg/mL (180-914); Vitamin D,25 Hydroxy 25.8 ng/mL (30-100); cholesterol:hdl ratio screen 3.21
== END | disposition home or self-care (01) ==
LOC: VSLAB 09:38
PROVIDERS: Visit Provider Nurse Practitioner Family
DX: E11.9 Type 2 diabetes mellitus without complications (principal); E55.9 Vitamin D deficiency, unspecified; E78.5 Hyperlipidemia, unspecified; R53.83 Other fatigue
CPT/HCPCS: 36415; 80053; 80061; 82306; 82607; 83036; 84439; 84443

== ENCOUNTER → 2025-02-19 | Outpatient (CLI) | payer MEDICAID, SELFPAY ==
[2025-02-19 10:41] LABS: AST(SGOT) 14 U/L (<=31); Alanine Aminotransfer ALT/SGPT 10 U/L (<=34); Albumin, Serum 4.0 g/dL (3.5-5.0); Alkaline Phosphatase 63 U/L (35-104); Anion Gap 10 (5-15); BUN 18 mg/dL (4-19); BUN/Creat Ratio 28.8 RATIO (10-20); Calcium,Total 9.0 mg/dL (7.6-11.0); Carbon Dioxide 24.3 mmol/L (21.0-32.0); Chloride 104 mmol/L (98-108); Globulin 3.6 g/dL (2.2-4.2); Glucose 95 mg/dL (70-99); Potassium 4.2 mmol/L (3.3-5.1); Vitamin D,25 Hydroxy 48.9 ng/mL (30-100)
== END | disposition home or self-care (01) ==
PROVIDERS: PCP Nurse Practitioner Family; Referring Provider Nurse Practitioner Family; Visit Provider Nurse Practitioner Family
DX: E11.9 Type 2 diabetes mellitus without complications (principal); E55.9 Vitamin D deficiency, unspecified
CPT/HCPCS: 36415; 80053; 82306; 83036

== ENCOUNTER → 2025-02-20 | Outpatient (CLI) | payer MEDICAID, SELFPAY ==
--- NOTE | 2025-02-20 09:52 | VDLE_ITS ---
Reason For Study Reason For Study: Pain RIGHT LEFT GSV is normal. CFV is compressible, spontaneous, phasic, competent, CFV is compressible, spontaneous, phasic, competent and demonstrates normal augmentation. and demonstrates normal augmentation. FV is compressible, spontaneous, phasic, competent and demonstrates normal augmentation. POP V is compressible, spontaneous, phasic, competent and demonstrates normal augmentation. T/P Trunk is compressible. PTV is compressible. RT PerV is compressible. Procedure This is a venous duplex using B-mode, color flow and spectral Doppler. Exam performed in department. VL/Venous Duplex US, Unilateral Interpretation Summary Deep veins of the right lower extremity are patent and compressible segmentally . There is no evidence of right lower extremity deep vein thrombosis. Valvular competence appears intact within the p roximal deep venous system on the right . The right great saphenous vein appears patent and compressible segmentally. The left common femoral vein is patent and compressible . Ordering Physician: Day Simmons Referring Physician: Sinai Eckert NP Performed By: Elisa Hdz RVT
== END | disposition home or self-care (01) ==
LOC: CVS 09:50
PROVIDERS: PCP Nurse Practitioner Family
DX: M25.561 Pain in right knee (principal); M79.661 Pain in right lower leg
CPT/HCPCS: 93971